=== PATIENT | female | born 1965 | race African-American/Black ===

== ENCOUNTER 2021-07-24 12:06 | Outpatient (CLI) | payer BC | END 2021-07-24 12:07 | disposition home or self-care (01) | LOC: CSHMAMMO 12:06 | PROVIDERS: ATTEND Family Medicine | DX: Z12.31 Encounter for screening mammogram for malignant neoplasm of breast (principal); Z98.890 Other specified postprocedural states | CPT/HCPCS: 77063; 77067 ==

== ENCOUNTER 2022-03-08 09:02 | Outpatient (CLI) | payer BC | END 2022-03-08 09:03 | disposition home or self-care (01) | LOC: CSHWCC 09:02 | PROVIDERS: ATTEND Nurse Practitioner Family | DX: T21.21XD Burn of second degree of chest wall, subsequent encounter (principal) | CPT/HCPCS: 99203; G0463 ==